=== PATIENT | male | born 2000 | race American Indian/Alaskan Native ===

== ENCOUNTER 2020-03-07 07:22 | Emergency (ER) | payer BC ==
[2020-03-07 07:29] VITALS: BP 115/76
--- NOTE | 2020-03-07 10:08 | Emergency Department Report ---
ED General Adult HPI - General Chief complaint: Sore Throat Stated complaint: SORE THROAT Time Seen by Provider: 03/07/20 09:00 Source: patient Mode of arrival: Ambulatory Limitations: No Limitations - History of Present Illness Initial comments: 20-year-old -[place] male patient presents with complaints of sore throat x 2 days. He rates his current pain as a 7/10 in severity and states it worsens with swallowing. He denies trying any OTC medications for his symptoms. He denies any fevers/chills/sweats, difficulty opening his jaw, change in his voice, drooling, rash, chest pain, cough, or shortness of breath. No history of recurrent strep per patient or known recent sick contacts. - Related Data Previous Rx's Medication Instructions Recorded Last Taken Type Amoxicillin/Potassium Clav 1 each PO BID 10 Days #20 tablet 03/07/20 Unknown Rx [Augmentin 875-125 Tablet] Ibuprofen [Motrin 800 MG tab] 800 mg PO Q8HR PRN #20 tablet 03/07/20 Unknown Rx Allergies Allergy/AdvReac Type Severity Reaction Status Date / Time No Known Allergies Allergy Unverified 03/07/20 07:26 ED Review of Systems ROS: Stated complaint: SORE THROAT Other details as noted in HPI Constitutional: denies: chills, fever, malaise, weakness ENT: throat pain. denies: ear pain Respiratory: denies: cough, SOB with exertion Cardiovascular: denies: chest pain Gastrointestinal: denies: abdominal pain, nausea, vomiting Skin: denies: rash, lesions Neurological: denies: headache, weakness ED Past Medical Hx - Past Medical History Previous Medical History?: Yes Hx Asthma: Yes - Medications Home Medications: Home Medications Medication Instructions Recorded Confirmed Last Taken Type Amoxicillin/Potassium Clav 1 each PO BID 10 Days #20 tablet 03/07/20 Unknown Rx [Augmentin 875-125 Tablet] Ibuprofen [Motrin 800 MG tab] 800 mg PO Q8HR PRN #20 tablet 03/07/20 Unknown Rx ED Physical Exam - General Limitations: No Limitations General appearance: alert, in no apparent distress - Head Head exam: Present: atraumatic, normocephalic - Eye Eye exam: Present: normal appearance. Absent: scleral icterus - ENT ENT exam: Present: mucous membranes moist - Expanded ENT Exam Expanded Mouth exam: Present: tongue normal. Absent: drooling, trismus, muffled voice Throat exam: Positive: tonsillar erythema, tonsillomegaly (Bilateral swelling of the tonsils noted on exam, right greater than left), tonsillar exudate - Neck Neck exam: Present: full ROM, lymphadenopathy (Mild right worse than left). Absent: meningismus - Respiratory Respiratory exam: Present: normal lung sounds bilaterally. Absent: respiratory distress - Cardiovascular Cardiovascular Exam: Present: regular rate, normal rhythm - Back Exam Back exam: Present: normal inspection - Neurological Exam Neurological exam: Present: alert, oriented X3, normal gait - Psychiatric Psychiatric exam: Present: normal affect, normal mood - Skin Skin exam: Present: warm, dry, intact, normal color. Absent: rash, cyanosis, diaphoretic ED Course Vital Signs 03/07/20 03/07/20 07:27 08:09 Temperature 98.8 F Pulse Rate 59 L Respiratory 18 Rate Blood Pressure 115/76 O2 Sat by Pulse 98 Oximetry ED Medical Decision Making - Medical Decision Making 20-year-old -[place] male patient presents with complaints of sore throat x 2 days. He rates his current pain as a 7/10 in severity and states it worsens with swallowing. He denies trying any OTC medications for his symptoms. He denies any fevers/chills/sweats, difficulty opening his jaw, change in his voice, drooling, rash, chest pain, cough, or shortness of breath. No history of recurrent strep per patient or known recent sick contacts. On exam, patient has bilateral tonsillar enlargement with right greater than left. No drooling or trismus is noted. Patient is afebrile non-tachycardic. Given that the right tonsil was significantly more enlarged than the left on exam, will treat with Augmentin to cover for possible peritonsillar abscess. Needle aspiration does not appear to be necessary at this point given uncertainty of actual peritonsillar abscess. Discussed in great detail with patient signs and symptoms of peritonsillar abscess and that should prompt immediate return to the emergency department, patient verbalized understanding. Patient to follow-up with otolaryngology. He is well-appearing and stable for discharge home. Critical care attestation.: If time is entered above; I have spent that time in minutes in the direct care of this critically ill patient, excluding procedure time. ED Disposition Clinical Impression: Acute tonsillitis Qualifiers: Pharyngitis/tonsillitis etiology: streptococcus Streptococcal tonsillitis recurrence: non-recurrent Qualified Code(s): J03.00 - Acute streptococcal tonsillitis, unspecified Disposition: TO HOME OR SELFCARE Is pt being admited?: No Condition: Stable Instructions: Peritonsillar Abscess (ED), Strep Throat (ED) Additional Instructions: Seek immediate emergency treatment if your symptoms do not improve within 24 hours or you develop new symptoms including difficulty opening her jaw, trouble breathing, difficulty swallowing, or swelling of the neck/throat Prescriptions: Amoxicillin/Potassium Clav [Augmentin 875-125 Tablet] 1 each PO BID 10 Days #20 tablet Ibuprofen [Motrin 800 MG tab] 800 mg PO Q8HR PRN #20 tablet PRN Reason: pain Referrals: JAMI APONTE MD [Staff Physician] - 03/08/20
[2020-03-07] MEDS ORDERED: IBUPROFEN 800 MG TAB PO ONE (10:09)
== END 2020-03-07 10:20 | disposition home or self-care (01) ==
LOC: ED 07:22
DX: J03.90 Acute tonsillitis, unspecified (principal); J45.909 Unspecified asthma, uncomplicated
CPT/HCPCS: 99282